=== PATIENT | male | born 1955 | race Caucasian/White ===

== ENCOUNTER → 2017-01-20 | Day surgery (SDC) | payer OTHER ==
[~2017-01-20] MED LIST: ACETAMINOPHEN 1000 MG/100 ML VIAL IV ONE; BUPIVACAINE/EPINEPHRINE 0.5% 50 ML VIAL ONE; CARV6.252 PO; LACTATED RINGER'S 1000 ML INJ 1,000 ML ONE; LIDOCAINE 1%/EPINEPHrine 1:100,000 SOLN 50 ML VIAL ONE; LISI-586 PO; LOVA40TA PO; MIDAZOLAM HCL 2 MG/2 ML VIAL ONE; ONDANSETRON HCL 4 MG/2 ML VIAL IV PUSH ONE; PERC5TAB12 PO; PLAV75TA PO; PROPOFOL 200 MG/20 ML AMP IV ONE; oxyCODONE/ACETAMINOPHEN 5 MG/325 MG TAB ONE
--- NOTE | 2017-01-21 17:59 | MP ---
cc: ATTILA POWELL DATE OF SURGERY 01/20/17 PREOPERATIVE DIAGNOSIS Chronic left chest wall wound. POSTOPERATIVE DIAGNOSIS Chronic left chest wall wound. PROCEDURE Excision of chronic left chest wall wound and placement of wound VAC SURGEON Pérez Powell MD ANESTHESIA General. OPERATIVE PROCEDURE The patient was brought to the operating room and after satisfactory sedation was obtained, the left chest was prepped and draped in the usual sterile fashion. The chronic wound was elliptically excised and sent for permanent pathology. The resulting wound was 4 cm x 2.5 cm. The wound VAC sponge was cut to the appropriate shape and secured within the wound with the proper dressing. The suction was engaged and good seal was found. The patient was then awaken and taken from the operating room in satisfactory condition having tolerated the procedure without a problem. Estimated blood loss was nil. The instrument, sponge, and needle counts were reported as being correct x2 at the end of the procedure. MD SIENA Garner/ /8:49 AM /5:53 PM
== END | disposition home or self-care (01) ==
LOC: ESDC 06:48
PROVIDERS: ATTEND Surgery
DX: S21.102A Unspecified open wound of left front wall of thorax without penetration into thoracic cavity, initial encounter (principal)
CPT/HCPCS: 00400; 11404; 88305; J0131; J2250; J2405; J3010; J7120